=== PATIENT | female | born 1990 | race Caucasian/White ===

== ENCOUNTER 2020-06-03 22:56 | Emergency (ER) | payer SELFPAY ==
[~2020-06-03] VITALS: Ht 162.6 cm; Wt 43.1 kg
[2020-06-03] MEDS ORDERED: FAMOTIDINE/PF INJ 20 MG/2 ML VIAL IV ONE ×2 (23:00→23:30)
[2020-06-03] MEDS ORDERED: LIDOCAINE VISCOUS 2% UD 15 ML UDC ONE (23:00)
[2020-06-03] MEDS ORDERED: MAG HYDROX/AL HYDROX/SIMETH 30 ML UDC ONE (23:00)
[2020-06-03] MEDS ORDERED: ONDANSETRON HCL/PF 4 MG/2 ML VIAL ONE (23:00)
[2020-06-03 23:30] LABS: BASOPHILS % (AUTO) 0.3 % (0.0-2.0); HEMATOCRIT 47 % (33-45); HEMOGLOBIN 15.8 g/dL (11.5-14.8); LYMPHOCYTES % (AUTO) 8.9 % (20.0-44.0); MEAN CORPUSCULAR HGB CONC 34 g/dl (31.0-36.0); MEAN CORPUSCULAR VOLUME 94 fL (82-100); MONOCYTES # (AUTO) 0.6 /CMM (0.1-1.30); MONOCYTES % (AUTO) 5.1 % (2.0-12.0); NEUTROPHILS # (AUTO) 9.9 /CMM (1.8-8.9); NEUTROPHILS % (AUTO) 85.7 % (43.0-81.0); PLATELET COUNT (AUTO) 301 /CMM (150-450); RED BLOOD CELL COUNT(AUTO) 4.98 MIL/uL (4.0-5.2); WHITE BLOOD COUNT (AUTO) 11.5 K/uL (4.3-11.0)
[2020-06-03 23:30] LABS: APPEARANCE,URINE Clear (CLEAR); BILIRUBIN,URINE SMALL (NEGATIVE); BLOOD, URINE Moderate Ery/uL (NEGATIVE); COLOR,URINE Yellow (YELLOW); KETONES,URINE >=160 (NEGATIVE); LEUKOCYTE ESTERASE ,URINE Negative (NEGATIVE); NITRITE, URINE Negative (NEGATIVE); PROTEIN,URINE 100 mg/dl (NEGATIVE); UGLUCOSE Negative (NEGATIVE); UROBILINOGEN,URINE 0.2 EU/dL (0.2)
[2020-06-03] MEDS ORDERED: IV NS 0.9% 1,000 ML BAG IV ONE (23:30)
[2020-06-03] MEDS ORDERED: MAG HYDROX/AL HYDROX/SIMETH 30 ML UDC PO ONE (23:30)
[2020-06-03] MEDS ORDERED: LIDOCAINE VISCOUS 2% UD 15 ML UDC MM ONE (23:30)
--- NOTE | 2020-06-03 23:32 | NUR ---
BIBS FROM HOME WITH PARTNER TO ER BED 7. AAOX4. NOT IN RESP DISTRESS. AMBUALTORY. CAME IN FOR SEVERE ABDOMINAL PAIN SINCE , NAUSEA AND MULTIPLE EPISODES OF VOMMITING. SINCE THURSDAY. PER PT, PAIN IS LOCATED ON THE EPIGASTRIC UMBILICUS AREA. PAIN UPON PALPATION. PAIN 10/10 SHARP. PT REPORTED THAT SHE IS COVID NEGATIVE X 1 WEEK. MD WAS AT THE BEDSIDE FOR EVAL. ORDERS RECEIVED NOTED ACND CARRIED OUT. IV LINE ESTABLISHED ON THE L AC 20G. BLOOD DRAWN AND GIVEN TO MELTER OPERATOR. URINE SENT TO LAB. MEDICATED ORDERED. WILL CONTINUE TO MONITOR PT.
--- NOTE | 2020-06-03 23:39 | NUR ---
PT PROVIDED WITH WARM BLANKET AND SOCKS
[2020-06-03 23:43] LABS: ALBUMIN 5.3 g/dL (3.4-5.0); BILIRUBIN,DIRECT 0.2 mg/dL (0.0-0.2); BILIRUBIN,TOTAL 0.9 mg/dL (0.2-1.0); POTASSIUM 3.6 mmol/L (3.5-5.1)
[2020-06-04] MEDS ORDERED: ONDANSETRON HCL/PF 4 MG/2 ML VIAL IV ONE
[2020-06-04] MEDS ORDERED: MORPHINE SULFATE INJ 4 MG/ML DISP.SYRIN ONE ×2 (00:09→02:28)
[2020-06-04 00:22] LABS: BACTERIA,URINE Few /HPF (None Seen); SQUAMOUS EPITHELIAL CELL,UR Few /HPF (None Seen); WBC,URINE 0-2 /HPF (0-3)
--- NOTE | 2020-06-04 00:25 | NUR ---
tomas at bedside
--- NOTE | 2020-06-04 00:29 | NUR ---
FINISHED WITH ULTRASOUND PROCEDURE
[2020-06-04] MEDS ORDERED: IOHEXOL-300 100 ML VIAL IV ONE (00:48)
[2020-06-04] MEDS ORDERED: IV NS 0.9% 250 ML IV ONE (00:49)
--- NOTE | 2020-06-04 01:29 | NUR ---
XRAY AT BEDSIDE.
[2020-06-04] MEDS ORDERED: ONDANSETRON HCL/PF 4 MG/2 ML VIAL ONE (02:28)
[2020-06-04] MEDS ORDERED: ONDANSETRON HCL/PF - ER 4 MG/2 ML VIAL IV ONE (02:30)
[2020-06-04] MEDS ORDERED: MORPHINE SULFATE INJ 2 MG/ML DISP.SYRIN IV ONE ×2 (02:30)
--- NOTE | 2020-06-04 03:13 | NUR ---
Patient discharged to home in stable condition. Written and verbal after care instructions given. Patient verbalizes understanding of instruction.IV removed. Catheter intact and site benign. Pressure and 4x4 applied to site. No bleeding noted.
[2020-06-04 03:19] VITALS: BP 129/63
== END 2020-06-04 03:20 | disposition home or self-care (01) ==
LOC: ER 22:56
DX: R10.10 Upper abdominal pain, unspecified (principal); R11.2 Nausea with vomiting, unspecified
CPT/HCPCS: 36415; 74177; 76705; 80048; 80076; 81001; 83690; 84703; 85025; 96361; 96374; 96375 ×2; 96376; 99285; J2270 ×2; J2405 ×3; J3490; J7030; J7050; Q9967; 81000-TC

== ENCOUNTER 2020-06-04 15:14 | Emergency (ER) | payer MEDICAID ==
[~2020-06-04] VITALS: Ht 162.6 cm; Wt 42.2 kg
--- NOTE | 2020-06-04 16:16 | NUR ---
BIBS FROM [facility] TO ER BED 6. AAOX4. NOT IN RESP DISTRESS. AMBUALTORY. CAME IN AGAIN FOR ABDOMINAL PAIN W/ NAUSEA ND VOMMITING. PT WAS HERE LAST NIGHT FOR THE SAME REASON. PT IS HAVING PAIN ON HER MID UPPER ABDOMINAL SHARP 6/10. PT ALSO REPORTING NAUSEA. MD WAS AT THE BEDSIDE FOR EVAL ORDERS RECEIVED NOTED AND CARRIED OUT. IV LINE ESTABLISHED ON R AC 20G. BLOOD DRAWN AND GIVEN TO CUFF KNITTER. WILL CONTINUE TO MONITOR PT
[2020-06-04 16:22] LABS: BASOPHILS # (AUTO) 0.1 /CMM (0.0-0.2); BASOPHILS % (AUTO) 0.5 % (0.0-2.0); HEMATOCRIT 45 % (33-45); HEMOGLOBIN 14.9 g/dL (11.5-14.8); LYMPHOCYTES # (AUTO) 1.2 /CMM (0.8-4.8); LYMPHOCYTES % (AUTO) 10.7 % (20.0-44.0); MEAN CORPUSCULAR HGB CONC 33 g/dl (31.0-36.0); MEAN CORPUSCULAR VOLUME 95 fL (82-100); MONOCYTES # (AUTO) 0.7 /CMM (0.1-1.30); MONOCYTES % (AUTO) 5.9 % (2.0-12.0); NEUTROPHILS # (AUTO) 9.3 /CMM (1.8-8.9); NEUTROPHILS % (AUTO) 82.9 % (43.0-81.0); PLATELET COUNT (AUTO) 273 /CMM (150-450); WHITE BLOOD COUNT (AUTO) 11.2 K/uL (4.3-11.0)
[2020-06-04 16:25] LABS: CALCIUM, SERUM 9.6 mg/dL (8.5-10.1); CREATININE 0.9 mg/dL (0.6-1.3); POTASSIUM 3.6 mmol/L (3.5-5.1)
[2020-06-04] MEDS ORDERED: PANTOPRAZOLE 40 MG VIAL IV ONE (16:30)
[2020-06-04] MEDS ORDERED: ONDANSETRON HCL/PF 4 MG/2 ML VIAL IVP ONE (16:30)
[2020-06-04] MEDS ORDERED: LIDOCAINE VISCOUS 2% UD 15 ML UDC MM ONE (16:30)
[2020-06-04] MEDS ORDERED: MAG HYDROX/AL HYDROX/SIMETH 30 ML UDC PO ONE (16:30)
[2020-06-04] MEDS ORDERED: IV NS 0.9% 1,000 ML BAG IV ONE (16:30)
[2020-06-04] MEDS ORDERED: PANTOPRAZOLE 40 MG VIAL ONE (16:32)
[2020-06-04] MEDS ORDERED: MAG HYDROX/AL HYDROX/SIMETH 30 ML UDC ONE ×2 (16:32→16:46)
[2020-06-04] MEDS ORDERED: LIDOCAINE VISCOUS 2% UD 15 ML UDC ONE (16:32)
[2020-06-04] MEDS ORDERED: ONDANSETRON HCL/PF 4 MG/2 ML VIAL ONE (16:32)
[2020-06-04 16:39] LABS: ALBUMIN 4.8 g/dL (3.4-5.0); BILIRUBIN,DIRECT 0.2 mg/dL (0.0-0.2); BILIRUBIN,TOTAL 0.9 mg/dL (0.2-1.0); TOTAL PROTEIN, SERUM 8.2 g/dL (6.4-8.2)
[2020-06-04 18:04] VITALS: BP 132/78
--- NOTE | 2020-06-04 18:04 | NUR ---
Patient discharged to home in stable condition. Written and verbal after care instructions given. Patient verbalizes understanding of instruction.IV removed. Catheter intact and site benign. Pressure and 4x4 applied to site. No bleeding noted. Pt ambulatory with a steady gait
== END 2020-06-04 18:05 | disposition home or self-care (01) ==
LOC: ER 15:18
DX: R10.13 Epigastric pain (principal); R10.30 Lower abdominal pain, unspecified; E86.0 Dehydration
CPT/HCPCS: 36415; 80048; 80076; 83690; 85025; 96361; 96374; 96375; 99284; C9113; J2405; J7030